=== PATIENT | female | born 1985 | race Caucasian/White ===

== ENCOUNTER 2022-06-06 13:35 | Inpatient (IN) | payer OTHER ==
[~2022-06-06] VITALS: Ht 149.9 cm; Wt 74.4 kg
[2022-06-06 15:17] LABS: CLARITY URINE CLEAR (CLEAR); COLOR URINE YELLOW (YELLOW); KETONES URINE NEGATIVE (NEGATIVE); LEUKOCYTE ESTERASE URINE NEGATIVE (NEGATIVE); NITRITE URINE NEGATIVE (NEGATIVE); OCCULT BLOOD URINE 3+ (NEGATIVE); PROTEIN URINE 1+ (NEGATIVE); SPECIFIC GRAVITY URINE 1.015 (1.005-1.030); UROBILINOGEN URINE 0.2 E.U./dL (0.2-1.0)
[2022-06-06] MEDS: LACTATED RINGERS 1,000 ML IV SCH ×2 (17:22→18:07)
[2022-06-06] MEDS ORDERED: TERBUTALINE SULFATE 1MG/ML VIAL SUBCUT PRN (18:00)
[2022-06-06 18:26] LABS: HEMOGLOBIN. 11.4 g/dL (12.0-16.0); MEAN CORPUSCULAR HEMOGLOBIN 28.3 pg (28.0-32.0); MEAN CORPUSCULAR VOLUME 84.3 fL (81.0-99.0); PLATELET 234 x1000/uL (130-400); RED BLOOD CELL COUNT 4.03 mill/uL (4.2-5.4); RED CELL DISTRIBUTION WIDTH 14.7 % (11.6-14.6)
[2022-06-06 20:13] LABS: PLATELET ESTIMATE NORMAL
[2022-06-06] MEDS ORDERED: CEFAZOLIN SODIUM 1000MG/VIAL ONE (20:16)
[2022-06-06] MEDS ORDERED: OXYTOCIN 10 UNITS/ML 1ML ONE (20:16)
[2022-06-06] MEDS ORDERED: FENTANYL CITRATE/PF 50MCG/ML 2ML VIAL ONE (20:16)
[2022-06-06] MEDS ORDERED: EPHEDRINE SULFATE 50MG/ML VIAL ONE (20:17)
[2022-06-06] MEDS ORDERED: PHENYLEPHRINE HCL 10 MG/ML 1ML (IV VIAL) IV ONE (20:17)
[2022-06-06] MEDS ORDERED: ONDANSETRON HCL 4MG/2ML INJ ONE (20:17)
[2022-06-06] MEDS ORDERED: METHYLERGONOVINE MALEATE 0.2 MG/ML IM PRN (20:30)
[2022-06-06] MEDS ORDERED: NALOXONE HCL 0.4 MG/ML 1ML VIAL IM PRN (20:30)
[2022-06-06] MEDS ORDERED: CARBOPROST TROMETHAMINE 250 MCG/ML AMPUL IM PRN (20:30)
[2022-06-06] MEDS ORDERED: RHO(D) IMMUNE GLOBULIN 300 MCG/SYR IM NR (20:30)
[2022-06-06] MEDS ORDERED: DEXT 5%/LACTATED RINGERS 1,000 ML IV SCH ×2 (20:30→22:00)
[2022-06-06 20:48] LABS: CLARITY URINE CLEAR (CLEAR); COLOR URINE YELLOW (YELLOW); KETONES URINE 3+ (NEGATIVE); LEUKOCYTE ESTERASE URINE NEGATIVE (NEGATIVE); NITRITE URINE NEGATIVE (NEGATIVE); OCCULT BLOOD URINE 2+ (NEGATIVE); PH URINE 7.5 (4.5-8.0); PROTEIN URINE NEGATIVE (NEGATIVE); SPECIFIC GRAVITY URINE 1.007 (1.005-1.030); UROBILINOGEN URINE 0.2 E.U./dL (0.2-1.0)
[2022-06-06] MEDS ORDERED: PENICILLIN G POTASSIUM 5 MMU in DEXT 5% WATER 100 ML IV SCH (21:00)
[2022-06-06] MEDS ORDERED: DIPHENHYDRAMINE 50MG/ML VIAL ONE (21:02)
[2022-06-06] MEDS ORDERED: KETOROLAC 60MG/2ML VIAL IM ONE (21:12)
[2022-06-06 21:15] LABS: *AMPHETAMINES SCREEN URINE NEGATIVE (NEGATIVE); *BARBITURATES SCREEN URINE NEGATIVE (NEGATIVE); *BENZODIAZEPINES SCREEN URINE NEGATIVE (NEGATIVE); *COCAINE SCREEN URINE NEGATIVE (NEGATIVE); CANNABINOID URINE SCREEN NEGATIVE (NEGATIVE); METHADONE URINE SCREEN NEGATIVE (NEGATIVE); OPIATES URINE SCREEN NEGATIVE (NEGATIVE); PHENCYCLIDINE URINE SCREEN NEGATIVE (NEGATIVE)
[2022-06-06] MEDS ORDERED: BUTORPHANOL TARTRATE 2 MG/ML VIAL IV PRN (21:15)
[2022-06-06] MEDS ORDERED: NALOXONE HCL 0.4 MG/ML 1ML VIAL IV PRN (21:15)
[2022-06-06] MEDS ORDERED: DIPHENHYDRAMINE 50MG/ML VIAL IV PRN (21:15)
[2022-06-06 21:31] LABS: PARTIAL THROMBOPLASTIN TIME 27.1 sec (23.4-31.0); PROTHROMBIN TIME 10.5 sec (9.6-11.0)
[2022-06-06] MEDS ORDERED: LANOLIN OINT 7GM TUBE TOP PRN (22:00)
[2022-06-06] MEDS ORDERED: DIPHENHYDRAMINE 25MG CAPSULE PO PRN (22:00)
[2022-06-06] MEDS ORDERED: IBUPROFEN 400MG TABLET PO PRN (22:00)
[2022-06-06] MEDS ORDERED: HYDROCODONE/ACETAMINOPHEN 5/325MG TABLET PO PRN (22:00)
[2022-06-06] MEDS ORDERED: ONDANSETRON HCL 4MG/2ML INJ IV PRN (22:00)
[2022-06-06] MEDS ORDERED: OXYTOCIN 30 UNITS/500ML NS PMX 500 ML IV SCH (22:00)
[2022-06-06] MEDS: OXYTOCIN 30 UNITS/500ML NS PMX 500 ML IV SCH (22:12)
[2022-06-07] VITALS (8 sets, daily range): BP systolic 100–110; BP diastolic 59–65
[2022-06-07] MEDS ORDERED: PENICILLIN G POTASSIUM 2.5 MMU in DEXTROSE 5% WATER 50 ML IV SCH (01:00)
[2022-06-07] MEDS: OXYTOCIN 30 UNITS/500ML NS PMX 500 ML IV SCH (01:29)
[2022-06-07] MEDS: LACTATED RINGERS 1,000 ML IV SCH (06:11)
[2022-06-07 07:04] LABS: BASOPHILS % 0.1 % (0.0-2.0); EOSINOPHILS % 0.2 % (0.0-5.0); HEMATOCRIT. 32.1 % (36.0-48.0); HEMOGLOBIN. 10.7 g/dL (12.0-16.0); LYMPHOCYTES % 15.5 % (20.0-50.0); MEAN CORPUSCULAR HEMOGLOBIN 28.1 pg (28.0-32.0); MEAN CORPUSCULAR VOLUME 84.6 fL (81.0-99.0); MEAN PLATELET VOLUME 9.2 fl (7.4-10.4); MONOCYTES % 3.9 % (2.0-8.0); NEUTROPHILS % 80.3 % (40.0-76.0); PLATELET 213 x1000/uL (130-400); RED CELL DISTRIBUTION WIDTH 14.7 % (11.6-14.6)
[2022-06-07] MEDS: PRENATAL VIT/FE FUMARATE/FA TABLET PO SCH (09:33)
[2022-06-07] MEDS: MAGNESIUM/ALUMINUM HYDROXIDE/SIMETHICONE 30ML UDC PO SCH ×3 (09:33→20:38)
[2022-06-07] MEDS: SIMETHICONE 80MG TABLET CHEW PO SCH ×3 (09:34→20:38)
[2022-06-07] MEDS ORDERED: INFLUENZA VACCINE 05/PF 0.5 ML SYRINGE IM ONE (10:00)
[2022-06-07] MEDS: KETOROLAC 30MG/ML VIAL IV SCH ×2 (11:12→20:38)
[2022-06-07] MEDS: FERROUS SULFATE 325MG TABLET PO SCH (15:36)
[2022-06-07] MEDS: IBUPROFEN 800MG TABLET PO PRN (19:16)
[2022-06-07] MEDS ORDERED: TETANUS, DIPHTHERIA, PERTUSSIS VAC/PF 0.5ML (>10YR OLD) IM ONE (19:45)
[2022-06-07] MEDS: DOCUSATE SODIUM 100MG CAPSULE PO SCH (20:38)
[2022-06-08 04:00] VITALS: BP 117/81
[2022-06-08] MEDS: IBUPROFEN 800MG TABLET PO PRN (04:39)
[2022-06-08] MEDS: MAGNESIUM/ALUMINUM HYDROXIDE/SIMETHICONE 30ML UDC PO SCH ×4 (08:28→21:30)
[2022-06-08] MEDS: SIMETHICONE 80MG TABLET CHEW PO SCH ×4 (08:29→22:04)
[2022-06-08] MEDS: PRENATAL VIT/FE FUMARATE/FA TABLET PO SCH (08:29)
[2022-06-08] MEDS: FERROUS SULFATE 325MG TABLET PO SCH ×4 (08:29→21:30)
[2022-06-08 08:30] VITALS: BP 129/80
[2022-06-08] MEDS: LACTATED RINGERS 1,000 ML IV SCH ×2 (14:30→22:00)
[2022-06-08 15:53] LABS: BASOPHILS % 0.4 % (0.0-2.0); EOSINOPHILS % 0.8 % (0.0-5.0); HEMATOCRIT. 37.2 % (36.0-48.0); HEMOGLOBIN. 11.9 g/dL (12.0-16.0); LYMPHOCYTES % 13.3 % (20.0-50.0); MEAN CORPUSCULAR HEMOGLOBIN 27.4 pg (28.0-32.0); MEAN CORPUSCULAR VOLUME 85.3 fL (81.0-99.0); MONOCYTES % 3.1 % (2.0-8.0); NEUTROPHILS % 82.4 % (40.0-76.0); PLATELET 280 x1000/uL (130-400); RED BLOOD CELL COUNT 4.36 mill/uL (4.2-5.4); RED CELL DISTRIBUTION WIDTH 14.8 % (11.6-14.6)
[2022-06-08 15:54] VITALS: BP 130/77
[2022-06-08 16:02] LABS: CHLORIDE 104 mEq/L (98-107)
[2022-06-08] MEDS: BISACODYL 10MG SUPP PR PRN (16:42)
[2022-06-08 19:00] VITALS: BP 127/81
[2022-06-08] MEDS ORDERED: KETOROLAC 30MG/ML VIAL IV PRN (20:15)
[2022-06-08] MEDS: KETOROLAC 30MG/ML VIAL IV SCH (20:17)
[2022-06-08] MEDS: DOCUSATE SODIUM 100MG CAPSULE PO SCH (21:30)
[2022-06-09 00:01] VITALS: BP 122/72
[2022-06-09] MEDS: KETOROLAC 30MG/ML VIAL IV SCH (01:59)
[2022-06-09 05:00] VITALS: BP 124/72
[2022-06-09] MEDS: BISACODYL 10MG SUPP PR PRN (06:29)
[2022-06-09 07:13] VITALS: BP 101/54
[2022-06-09] MEDS: SIMETHICONE 80MG TABLET CHEW PO SCH ×4 (07:25→21:01)
[2022-06-09] MEDS: MAGNESIUM/ALUMINUM HYDROXIDE/SIMETHICONE 30ML UDC PO SCH ×4 (07:25→21:01)
[2022-06-09] MEDS: PRENATAL VIT/FE FUMARATE/FA TABLET PO SCH (09:00)
[2022-06-09] MEDS: FERROUS SULFATE 325MG TABLET PO SCH ×2 (12:18→17:20)
[2022-06-09 15:07] VITALS: BP 131/79
[2022-06-09 20:15] VITALS: BP 125/71
[2022-06-09] MEDS: DOCUSATE SODIUM 100MG CAPSULE PO SCH (21:01)
[2022-06-10] MEDS: IBUPROFEN 800MG TABLET PO PRN (02:19)
[2022-06-10 04:00] VITALS: BP 126/78
[2022-06-10] MEDS ORDERED: IBUP-2030 PO (08:23)
[2022-06-10] MEDS ORDERED: MULT-1116 MT (08:23)
[2022-06-10] MEDS ORDERED: FERR-63 PO (08:23)
== END 2022-06-10 19:00 | disposition home or self-care (01) | DRG 786 ==
LOC: OBSVTOIN 13:35 → 8 EST LDRP 13:35 → 8EST 23:56
PROVIDERS: ADMIT Specialist; ATTEND Specialist
PROC: 10D00Z1 Extraction of Products of Conception, Low, Open Approach (ICD-10-PCS; principal; 2022-06-06)
DX: O34.211 Maternal care for low transverse scar from previous cesarean delivery (principal); O60.14X0 Preterm labor third trimester with preterm delivery third trimester, not applicable or unspecified; K56.7 Ileus, unspecified; Z20.822 Contact with and (suspected) exposure to COVID-19; O99.214 Obesity complicating childbirth; O99.62 Diseases of the digestive system complicating childbirth; Z3A.34 34 weeks gestation of pregnancy; Z37.0 Single live birth
CPT/HCPCS: 36415; 74018; 76805; 76818; 80053; 80305; 81003; 85025; 86592; 86703; 86850; 86900; 87340; 87426; 88307; 90686; 90715; 96360; 99281; J0690; J1200; J1885; J2370; J2405; J2540; J3010; J3105; J3490; J7060; J7120; J7121; A4315; J2590